=== PATIENT | male | born 1945 | race Caucasian/White ===

== ENCOUNTER 2020-09-10 03:14 | Emergency (ER) | payer OTHER, MEDICARE, BC ==
[~2020-09-10] VITALS: Ht 188 cm; Wt 109.1 kg
[2020-09-10 03:18] VITALS: BP 194/102
[2020-09-10] MEDS ORDERED: acetaminophen 325mg tablet PO ONE (03:55)
--- NOTE | 2020-09-10 04:30 | NUR ---
PT REFUSING TO LEAVE VS MONITORS ON DUE TO EXTREME PAIN
[2020-09-10] MEDS ORDERED: oxyCODONE/APAP 5-325mg tablet PO ONE ×3 (05:15→05:35)
[2020-09-10] MEDS ORDERED: OXYC-145 PO (05:39)
--- NOTE | 2020-09-10 05:45 | NUR ---
PT GIVEN WALKER TO ASSIST IN GETTING UP TO USE URINAL
--- NOTE | 2020-09-10 05:59 | NUR ---
ASSISTED PT WITH URINAL. BED LINENS CHANGED DUE TO PT SPILLING PREVIOUS URINAL ON HIMSELF
--- NOTE | 2020-09-10 06:09 | NUR ---
GAVE PITCHER OF WATER UPON REQUEST
--- NOTE | 2020-09-10 09:47 | NUR ---
PATIENT ASSISTED ON GETTING DRESS,STILL AWAITING FOR TRANSPORT.
--- NOTE | 2020-09-10 10:00 | NUR ---
TC TO [facility] RE: TRANSPORTATION FOR PATIENT. THERE IS NO RECORD THAT ARRANGEMENTS WERE MADE FOR TRANSPORTATION. PATIENT INFORMED. IS HERE AND WILL BE ABLE TO DRIVE PATIENT TO [facility]POINTMENT.
== END 2020-09-10 10:18 | disposition home or self-care (01) ==
LOC: ER 03:14
DX: M54.5 Low back pain (principal); G89.29 Other chronic pain; Z98.890 Other specified postprocedural states; Z88.2 Allergy status to sulfonamides; Z79.899 Other long term (current) drug therapy; W18.39XA Other fall on same level, initial encounter; Y93.89 Activity, other specified; Y92.89 Other specified places as the place of occurrence of the external cause; Y99.8 Other external cause status
CPT/HCPCS: 72100; 72170; 99284